=== PATIENT | female | born 1980 | race American Indian/Alaskan Native ===

== ENCOUNTER 2019-04-02 09:26 | Emergency (ER) | payer BC ==
[2019-04-02] MEDS ORDERED: ONDANSETRON 4 MG ODT TAB PO ONE (10:08)
[2019-04-02] MEDS ORDERED: DICYCLOMINE 20 MG/2 ML INJ IM ONE (10:08)
--- NOTE | 2019-04-02 10:36 | Emergency Department Report ---
ED N/V/D HPI - General Chief complaint: Abdominal Pain Stated complaint: STOMACH PAIN Time Seen by Provider: 04/02/19 09:56 Source: patient Mode of arrival: Ambulatory Limitations: No Limitations - History of Present Illness Initial comments: 38-year-old female with no significant past medical history presents to the ER today complaining of nausea, vomiting, diarrhea and abdominal pain. Patient states that her symptoms started around 4 AM this morning. She states that she vomited about 3 times this morning. She has had 5 episodes of watery stools. And she complains of diffuse abdominal pain. She denies any associated fever or chills. She denies any associated URI symptoms or cough. She denies any obvious ill contacts or recent travel out of the country. She denies any recent antibiotic use nor recent bad food intake. She denies any UTI symptoms or vaginal symptoms. She states that her last menstrual cycle was last week. She reports no other symptoms at this time. MD complaint: nausea, vomiting, diarrhea, abdominal pain -: Sudden (this morning around 4am) - Related Data Previous Rx's Medication Instructions Recorded Last Taken Type Dicyclomine [Bentyl] 20 mg PO TID PRN #30 tablet 04/02/19 Unknown Rx Ondansetron [Zofran Odt] 4 mg PO Q8HR PRN #12 tab.rapdis 04/02/19 Unknown Rx Allergies Allergy/AdvReac Type Severity Reaction Status Date / Time No Known Allergies Allergy Unverified 04/02/19 09:30 ED Review of Systems ROS: Stated complaint: STOMACH PAIN Other details as noted in HPI Constitutional: denies: chills, diaphoresis, fever, weakness ENT: denies: throat pain, congestion Respiratory: denies: cough, shortness of breath, SOB with exertion, SOB at rest, stridor Cardiovascular: denies: chest pain Gastrointestinal: abdominal pain, nausea, vomiting, diarrhea. denies: hematemesis, melena, hematochezia Genitourinary: denies: urgency, dysuria, discharge Musculoskeletal: denies: back pain, arthralgia, myalgia Skin: denies: rash Neurological: denies: headache, weakness, numbness, paresthesias, confusion ED Past Medical Hx - Past Medical History Previous Medical History?: No - Surgical History Past Surgical History?: No - Social History Smoking Status: Never Smoker Substance Use Type: None - Medications Home Medications: Home Medications Medication Instructions Recorded Confirmed Last Taken Type Dicyclomine [Bentyl] 20 mg PO TID PRN #30 tablet 04/02/19 Unknown Rx Ondansetron [Zofran Odt] 4 mg PO Q8HR PRN #12 tab.rapdis 04/02/19 Unknown Rx ED Physical Exam - General Limitations: No Limitations General appearance: alert, in no apparent distress - Head Head exam: Present: atraumatic, normocephalic, normal inspection - Eye Eye exam: Present: normal appearance, PERRL, EOMI - ENT ENT exam: Present: normal exam, normal orophraynx, mucous membranes moist - Neck Neck exam: Present: normal inspection, full ROM. Absent: meningismus - Respiratory Respiratory exam: Present: normal lung sounds bilaterally - Cardiovascular Cardiovascular Exam: Present: regular rate, normal rhythm, normal heart sounds - GI/Abdominal GI/Abdominal exam: Present: soft, tenderness (mild diffuse). Absent: distended, guarding, rebound, rigid - Neurological Exam Neurological exam: Present: alert, oriented X3, CN II-XII intact, normal gait - Psychiatric Psychiatric exam: Present: normal affect, normal mood - Skin Skin exam: Present: intact. Absent: rash ED Course Vital Signs 04/02/19 10:48 Temperature 98.4 F Pulse Rate 74 Respiratory 14 Rate Blood Pressure 131/72 [Left] ED Medical Decision Making - Medical Decision Making 38 year old female presents to ED c/o n/v/d and abdominal cramps which started this morning around 4 am. Patient reports feeling better after meds given in ED. She has not had any vomiting or diarrhea since she has been in room. She is resting comfortably, she is not toxic appearing nor ill appearing and there is no signs of significant dehydration. She is no acute distress. She has non surgical abdominal exam. Her VS are stable. Suspect gastroenteritis at this time. No futher work up nor admission indicated at this time. Discussed suspected diagnosis, and treatment plan with patient. She agrees with plan and expresses understanding of instructions. Patient is stable and appropriate for discharge at this time. Critical care attestation.: If time is entered above; I have spent that time in minutes in the direct care of this critically ill patient, excluding procedure time. ED Disposition Clinical Impression: Gastroenteritis Disposition: DC-01 TO HOME OR SELFCARE Is pt being admited?: No Does the pt Need Aspirin: No Condition: Stable Instructions: Gastroenteritis (ED) Additional Instructions: Recommend that you drink lots of fluids, recommend doing BLAND DIET, and also recommend lots of rest. Take medications as prescribed. Recommend close follow up with PCP. Return to ED if anything worsens or changes. Prescriptions: Dicyclomine [Bentyl] 20 mg PO TID PRN #30 tablet PRN Reason: Abdominal Pain Ondansetron [Zofran Odt] 4 mg PO Q8HR PRN #12 tab.rapdis PRN Reason: Vomiting Forms: Work/School Release Form(ED) Time of Disposition: 11:48
[2019-04-02 11:22] LABS: HCG Qualitative,Urine Negative (Negative)
[2019-04-02 11:24] LABS: Bilirubin,Urine NEG (Negative); Blood,Urine NEG (Negative); Color,Urine Yellow (Yellow); Mucus,Urine 3+ /HPF; Protein,Urine <15 mg/dL mg/dL (Negative); Urobilinogen,Urine < 2.0 mg/dL (<2.0)
[2019-04-02 11:54] VITALS: BP 130/70
== END 2019-04-02 11:53 | disposition home or self-care (01) ==
LOC: ED 09:26
DX: K52.9 Noninfective gastroenteritis and colitis, unspecified (principal); Z79.899 Other long term (current) drug therapy
CPT/HCPCS: 81001; 81025; 96372; 99283; J0500; Q0162